=== PATIENT | male | born 1945 | race Caucasian/White ===

== ENCOUNTER → 2018-03-04 | Outpatient (CLI) | payer MEDICARE, OTHER ==
--- NOTE | 2018-03-04 15:31 | Diagnostic Imaging Report ---
INDICATION: Knee pain. Three views of the left knee were obtained. FINDINGS: The alignment is normal. There is no fracture or dislocation. There are mild degenerative changes. Soft tissues are unremarkable. IMPRESSION: Mild degenerative changes otherwise unremarkable. Dictated by: Dictated on workstation # [id number]
--- NOTE | 2018-03-04 15:35 | Diagnostic Imaging Report ---
INDICATION: Back pain. Three views were obtained. FINDINGS: There is partial lumbarization of S1 segment. The alignment of the lumbar spine is grossly normal. Vertebral body heights are well maintained. No spondylolysis or spondylolisthesis. No fractures are identified. There is mild spondylitic change. IMPRESSION: Mild lumbar spondylosis otherwise unremarkable. Dictated by: Dictated on workstation # [id number]
== END ==
LOC: RAD 14:31
PROVIDERS: ATTEND Family Medicine
DX: M17.12 Unilateral primary osteoarthritis, left knee (principal); M47.816 Spondylosis without myelopathy or radiculopathy, lumbar region
CPT/HCPCS: 72100; 73562

== ENCOUNTER → 2018-05-07 | Outpatient (CLI) | payer MEDICARE, OTHER ==
--- NOTE | 2018-05-07 11:55 | Diagnostic Imaging Report ---
PROCEDURE: MRI lumbar spine. TECHNIQUE: Multiplanar, multisequence MRI of the lumbar spine was performed without contrast. INDICATION: Left leg pain for the last seven weeks as well as left hip pain. COMPARISON: No prior MRI studies are available for comparison. FINDINGS: Curvature of the lumbar spine is normal. There is minimal anterolisthesis of L4 on L5. The vertebral body heights are well maintained. No acute compression fracture is identified. There is increased signal intensity on T1 and T2-weighted images within the L5 vertebral body. 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 A smaller hemangiolipoma is seen within the L3 vertebral body as well as the T11 vertebral body. There is generalized desiccation of the discs throughout the lumbar spine compatible with degenerative disc disease however, no significant loss of height is identified. The conus is unremarkable at approximately T12 level. T11-T12: No central canal or neuroforaminal stenosis is identified. T12-L1: Unremarkable. L1-L2: There is mild ligamentum flavum thickening and mild hypertrophic facet changes present but the AP dimensions of the central canal are normal. The neural foramina appear to be patent. L2-L3: Hypertrophic facet degenerative changes and ligamentous thickening are present. This does create some trefoil configuration of the sac. There is narrowing of the lateral recesses bilaterally. Neural foramina remain patent. L3-L4: Hypertrophic facet degenerative change and ligamentous thickening with broad-based disc/osteophyte complex is present. This does flatten the ventral thecal sac. There is trefoil configuration of the sac. Significant narrowing of bilateral lateral recesses is seen. There is also moderate right neuroforaminal stenosis. L4-L5: Significant hypertrophic facet degenerative change is seen. There is a broad-based disc/osteophyte complex and ligamentous thickening creating significant stenosis of central canal. There is also significant bilateral lateral recess stenosis. There is [id number] left and significant right neuroforaminal stenosis. L5-S1: Central canal is patent. The neural foramina are patent. The paraspinous tissues are unremarkable. IMPRESSION: Multilevel lumbar spondylosis with multilevel central canal, lateral recess and neuroforaminal stenosis described level by level above. No acute compression fracture is detected. Dictated by: Dictated on workstation # [id number]
== END ==
LOC: RAD 09:56
PROVIDERS: ATTEND Orthopaedic Surgery
DX: M48.061 Spinal stenosis, lumbar region without neurogenic claudication (principal); M47.22 Other spondylosis with radiculopathy, cervical region; M99.73 Connective tissue and disc stenosis of intervertebral foramina of lumbar region; M24.28 Disorder of ligament, vertebrae; M51.16 Intervertebral disc disorders with radiculopathy, lumbar region; M43.16 Spondylolisthesis, lumbar region; D17.79 Benign lipomatous neoplasm of other sites
CPT/HCPCS: 72148

== ENCOUNTER 2023-03-23 20:13 | Emergency (ER) | payer MEDICARE, OTHER ==
[~2023-03-23] VITALS: Ht 172.7 cm; Wt 105.2 kg
[2023-03-23] MEDS ORDERED: NS IV 1000 ML 1,000 ML IV SCH (20:30)
[2023-03-23] MEDS ORDERED: ACETAMINOPHEN 650 MG SUPPOSITORY PR ONE (20:30)
[2023-03-23 20:31] LABS: EOSINOPHILS % (AUTO) 0 % (0-10); HEMATOCRIT 38 % (40-54); LYMPHOCYTES # (AUTO) 1.3 10^3/uL (1.0-4.0); MEAN CORPUSCULAR VOLUME 87 fL (80-99)
[2023-03-23 20:33] LABS: BASOPHILS % (AUTO) 0 % (0-10); HEMOGLOBIN 13.7 g/dL (13.3-17.7); LYMPHOCYTES % (AUTO) 29 % (12-44); MEAN CORPUSCULAR HEMOGLOBIN 31 pg (25-34); MEAN CORPUSCULAR HGB CONC 36 g/dL (32-36); MEAN PLATELET VOLUME 11.4 fL (9.0-12.2); MONOCYTES # (AUTO) 0.4 10^3/uL (0.0-1.0); MONOCYTES % (AUTO) 8 % (0-12); NEUTROPHILS # (AUTO) 2.7 10^3/uL (1.8-7.8); NEUTROPHILS % (AUTO) 63 % (42-75); PLATELET COUNT 81 10^3/uL (130-400); WHITE BLOOD COUNT 4.4 10^3/uL (4.3-11.0)
[2023-03-23 20:51] LABS: ALBUMIN 3.7 GM/DL (3.2-4.5); BILIRUBIN,TOTAL 0.6 MG/DL (0.1-1.0); CALCIUM 8.1 MG/DL (8.5-10.1); CREATININE SERUM 1.48 MG/DL (0.60-1.30); MAGNESIUM 1.5 MG/DL (1.6-2.4); POTASSIUM 3.1 MMOL/L (3.6-5.0); TOTAL PROTEIN 6.1 GM/DL (6.4-8.2)
[2023-03-23 20:54] LABS: PROTHROMBIN TIME PATIENT 13.8 SEC (12.2-14.7)
[2023-03-23 21:04] LABS: SMEAR SCAN COMMENT YES
--- NOTE | 2023-03-23 21:19 | Diagnostic Imaging Report ---
PROCEDURE: CT head, face, and cervical spine without contrast. TECHNIQUE: Multiple contiguous axial images were obtained through the head, neck, and facial bones without the use of intravenous contrast. Sagittal and coronal reformations through the cervical spine and facial bones were also performed. Auto Exposure Controls were utilized during the CT exam to meet ALARA standards for radiation dose reduction. INDICATION: Altered mental status, fever, found down . COMPARISON: None. FINDINGS: Trace acute subdural hematoma along the posterior falx and right tentorium measuring approximately 0.3 cm.. The olson-white matter differentiation is preserved. Scattered hypoattenuation within the periventricular and subcortical white matter. Generalized prominence of ventricles and cortical sulci. No midline shift. The subarachnoid cisterns are maintained. Scattered vascular calcifications. Complete opacification of the right maxillary sinus with associated mucoperiosteal thickening. Remainder of the paranasal sinuses are clear. Straightening of the cervical lordosis. Moderate multilevel facet arthritis. Moderate multilevel disc height loss. No acute fracture or dislocation of the cervical spine. The soft tissues of the neck are normal. Moderate multilevel spinal canal and neuroforaminal stenosis. Included lung apices are normal. The nasal bone is intact. The pterygoid plates are intact. The mandible is intact. Multifocal periodontal disease with numerous dental cavities and periapical lucencies. The bilateral zygomatic arch and bilateral maxilla are intact. The nasal bone is intact. The orbits are intact. The globes are intact. IMPRESSION: Trace acute subdural hematoma along the posterior falx and right tentorium measuring approximately 0.3 cm. No acute facial fracture. No acute fracture or dislocation of the cervical spine. Dictated by: Dictated on workstation # [id number]
[2023-03-23 22:09] LABS: CLARITY,URINE SLIGHTLY CLOUDY; COLOR,URINE YELLOW; PH,URINE 5.5 (5-9)
[2023-03-23 22:10] LABS: AMORPHOUS SEDIMENT,UR RARE AMOR URATES /LPF; BACTERIA,URINE TRACE /HPF; BILIRUBIN,URINE NEGATIVE (NEGATIVE); GLUCOSE, URINE (UA) NEGATIVE (NEGATIVE); KETONES,URINE NEGATIVE (NEGATIVE); LEUKOCYTE ESTERASE ,URINE NEGATIVE (NEGATIVE); NITRITE,URINE NEGATIVE (NEGATIVE); PROTEIN,URINE 1+ (NEGATIVE)
--- NOTE | 2023-03-23 22:13 | ED General ---
General Chief Complaint: Exposure Nursing Triage Note: PATIENT ARRIVED VIA EMS. PERSON DRIVING BY SAW HIM ON THE GROUND AND CAME TO ASSIST. WAS IN THE HOUSE. STATES THAT SHE LEFT HIM IN HIS CHAIR AND TURNED A MOVIE ON AT 1730. SHE DID NOT HEAR ANYTHING UNTIL THE PASSERBY WAS BANGING ON THE DOOR AND PT WAS ON THE GROUND JUST OUTSIDE OF THE HOUSE DOOR. Source of Information: Patient, EMS, Family Exam Limitations: Physical Impairments History of Present Illness Date Seen by Provider: Mar 23, 2023 Time Seen by Provider: 20:20 Initial Comments This is 77-year-old gentleman presents to the emergency room via EMS after being found down on the ground outside his home. The exact history was initially u ncertain and patient did not recall exactly how he ended up on the ground. He was noted to have a temperature of 105 F on this very hot day that is over 100 F outside. It is estimated he went outside around 1730, so he may have been laying on the ground for some time. Patient reports he was unable to get up after he fell. His mentation seems sluggish, but he is alert and oriented. He has some minor pain at the superior neck and headache. He denies any other injury. His only recent acute illness has been ear infection for which she has been taking Augmentin and I believe some eardrops. He and his report that the ear infection has been both bacterial and fungal. He has not had fever before this incident. Allergies and Home Medications Allergies Coded Allergies: No Known Drug Allergies (Unverified , 03/23/23) Patient Home Medication List Home Medication List Reviewed: Yes Review of Systems Review of Systems Constitutional: see HPI EENTM: see HPI Respiratory: no symptoms reported Cardiovascular: no symptoms reported Gastrointestinal: no symptoms reported Genitourinary: no symptoms reported Musculoskeletal: see HPI Skin: no symptoms reported Psychiatric/Neurological: See HPI Hematologic/Lymphatic: No Symptoms Reported Past Cvxvhte-Xzhljz-Qhpmxw Hx Patient Social History Tobacco Use?: No Use of E-Cig and/or Vaping dev: No Substance use?: No Alcohol Use?: No Past Medical History Surgeries: No (None reported) Respiratory: No Cardiac: Yes Hypertension Neurological: Yes Neuropathy Genitourinary: No Musculoskeletal: Yes Chronic Back Pain Endocrine: Yes Diabetes, Non-Insulin dep HEENT: Yes (Ear infections) Cancer: No Psychosocial: Yes PTSD Integumentary: No Physical Exam-Suspected Sepsis Physical Exam Vital Signs Vital Signs - First Documented 03/23/23 20:13 Temp 40.4 Pulse 93 Resp 16 B/P (MAP) 133/68 (89) Pulse Ox 92 O2 Delivery Room Air Capillary Refill : Less Than 3 Seconds Blood Pressure Mean: 89 Height, Weight, BMI Height: '" Weight: lbs. oz. kg; 35.00 BMI Method: General Appearance: WD/WN, Mild Distress (Reports headache), Obese HEENT: PERRL/EOMI, TMs Normal (Left TM normal. Right TM obscured by edema of the canal. Tenderness with ear exam), Other (Slight bruising on the bridge of the nose) Neck: Normal Inspection, Other (Slight tenderness at the superior aspect of the cervical spine) Respiratory: Lungs Clear, Normal Breath Sounds, No Accessory Muscle Use, No Respiratory Distress Cardiovascular: Regular Rate, Rhythm, No Edema, No Murmur Gastrointestinal: Normal Bowel Sounds, Non Tender, Soft; No Distended Extremity: Normal Inspection, Non Tender, No Pedal Edema Neurologic/Psychiatric: Alert, Oriented x3, No Motor/Sensory Deficits, Normal Mood/Affect Skin: normal color, warm/dry, ecchymosis (Slight bruising on the bridge of his nose) Focused Exam Lactate Level 03/23/23 21:18: Lactic Acid Level 1.13 Lactic Acid Level Progress/Results/Core Measures Suspected Sepsis SIRS Temperature: Pulse: 93 Respiratory Rate: 16 Laboratory Tests 03/23/23 20:17: White Blood Count 4.4 Blood Pressure 133 /68 Mean: 89 03/23/23 21:18: Lactic Acid Level 1.13 Laboratory Tests 03/23/23 20:17: Creatinine 1.48H, INR Comment 1.0, Platelet Count 81L, Total Bilirubin 0.6 Results/Orders Lab Results Laboratory Tests Test 03/23/23 20:17 03/23/23 20:30 03/23/23 21:18 03/23/23 21:53 Range/Units White Blood Count 4.4 4.3-11.0 10^3/uL Red Blood Count 4.38 4.30-5.52 10^6/uL Hemoglobin 13.7 13.3-17.7 g/dL Hematocrit 38 L 40-54 % Mean Corpuscular Volume 87 80-99 fL Mean Corpuscular Hemoglobin 31 25-34 pg Mean Corpuscular Hemoglobin Concent 36 32-36 g/dL Red Cell Distribution Width 12.3 10.0-14.5 % Platelet Count 81 L 130-400 10^3/uL Mean Platelet Volume 11.4 9.0-12.2 fL Immature Granulocyte % (Auto) 1 % Neutrophils (%) (Auto) 63 42-75 % Lymphocytes (%) (Auto) 29 12-44 % Monocytes (%) (Auto) 8 0-12 % Eosinophils (%) (Auto) 0 0-10 % Basophils (%) (Auto) 0 0-10 % Neutrophils # (Auto) 2.7 1.8-7.8 10^3/uL Lymphocytes # (Auto) 1.3 1.0-4.0 10^3/uL Monocytes # (Auto) 0.4 0.0-1.0 10^3/uL Eosinophils # (Auto) 0.0 0.0-0.3 10^3/uL Basophils # (Auto) 0.0 0.0-0.1 10^3/uL Immature Granulocyte # (Auto) 0.0 0.0-0.1 10^3/uL Percent Immature Platelet Fraction 7.1 0.0-7.6 % Prothrombin Time 13.8 12.2-14.7 SEC INR Comment 1.0 0.8-1.4 Activated Partial Thromboplast Time 31 24-35 SEC Sodium Level 133 L 135-145 MMOL/L Potassium Level 3.1 L 3.6-5.0 MMOL/L Chloride Level 99 98-107 MMOL/L Carbon Dioxide Level 23 21-32 MMOL/L Anion Gap 11 5-14 MMOL/L Blood Urea Nitrogen 28 H 7-18 MG/DL Creatinine 1.48 H 0.60-1.30 MG/DL Estimat Glomerular Filtration Rate 48 BUN/Creatinine Ratio 19 Glucose Level 155 H 70-105 MG/DL Calcium Level 8.1 L 8.5-10.1 MG/DL Corrected Calcium 8.3 L 8.5-10.1 MG/DL Magnesium Level 1.5 L 1.6-2.4 MG/DL Total Bilirubin 0.6 0.1-1.0 MG/DL Aspartate Amino Transf (AST/SGOT) 80 H 5-34 U/L Alanine Aminotransferase (ALT/SGPT) 51 0-55 U/L Alkaline Phosphatase 106 40-136 U/L Total Creatine Kinase 145 30-200 U/L C-Reactive Protein High Sensitivity 2.96 H 0.00-0.50 MG/DL Total Protein 6.1 L 6.4-8.2 GM/DL Albumin 3.7 3.2-4.5 GM/DL Smear Scan YES Glucometer 153 H 70-110 MG/DL Influenza Type A (RT-PCR) Not Detected Not Detecte Influenza Type B (RT-PCR) Not Detected Not Detecte SARS-CoV-2 RNA (RT-PCR) Not Detected Not Detecte Lactic Acid Level 1.13 0.50-2.00 MMOL/L Urine Color YELLOW Urine Clarity SLIGHTLY CLOUDY Urine pH 5.5 5-9 Urine Specific [place] 1.020 1.016-1.022 Urine Protein 1+ H NEGATIVE Urine Glucose (UA) NEGATIVE NEGATIVE Urine Ketones NEGATIVE NEGATIVE Urine Nitrite NEGATIVE NEGATIVE Urine Bilirubin NEGATIVE NEGATIVE Urine Urobilinogen 0.2 < = 1.0 MG/DL Urine Leukocyte Esterase NEGATIVE NEGATIVE Urine RBC (Auto) 2+ H NEGATIVE Urine RBC 10-25 H /HPF Urine WBC NONE /HPF Urine Squamous Epithelial Cells 2-5 /HPF Urine Crystals PRESENT H /LPF Urine Amorphous Sediment RARE JUANA URATES H /LPF Urine Bacteria TRACE /HPF Urine Casts NONE /LPF Urine Mucus SMALL H /LPF Urine Culture Indicated NO My Orders Orders - DIRK PALENCIA MD Cbc With Automated Diff (03/23/23 20:18) Comprehensive Metabolic Panel (03/23/23 20:18) Creatine Kinase (03/23/23 20:18) Magnesium (03/23/23 20:18) Ed Iv/Invasive Line Start (03/23/23 20:18) Ns Iv 1000 Ml (Sodium Chloride 0.9%) (03/23/23 20:30) Blood Culture (03/23/23 20:27) Sputum Culture (03/23/23 20:27) Urinalysis (03/23/23 20:27) Urine Culture (03/23/23 20:27) Protime With Inr (03/23/23 20:27) Partial Thromboplastin Time (03/23/23 20:27) Chest 1 View, Ap/Pa Only (03/23/23 20:27) Vital Signs Adult Sepsis Patie Q15M (03/23/23 20:27) O2 (03/23/23 20:27) Remove Rings In Anticipation O (03/23/23 20:27) Lactic Acid Analyzer (03/23/23 20:27) Acetaminophen Suppository (Acetaminophen (03/23/23 20:30) Covid 19 Inhouse Test (03/23/23 20:27) Influenza A And B By Pcr (03/23/23 20:27) Ct Head/Face/Cervical Wo (03/23/23 20:27) Accucheck Stat ONCE (03/23/23 20:27) Hs C Reactive Protein (03/23/23 21:16) [place] Cath (03/23/23 21:16) Fentanyl Injection (Fentanyl Injection (03/23/23 22:45) Ceftriaxone Iv/Im (Ceftriaxone Iv/Im) (03/23/23 22:34) Potassium Cl 10meq/50ml Ivpb (Kcl 10 Meq (03/23/23 23:15) Medications Given in ED Current Medications Medications Dose Ordered Sig/Chichi Route Start Time Stop Time Status Last Admin Dose Admin Acetaminophen 650 mg ONCE ONCE RI 03/23/23 20:30 03/23/23 20:31 DC 03/23/23 20:49 650 MG Fentanyl Citrate 50 mcg ONCE ONCE IVP 03/23/23 22:45 03/23/23 22:46 DC 03/23/23 22:56 50 MCG Potassium Chloride 50 ml @ 50 mls/hr ONCE ONCE IV 03/23/23 23:15 03/24/23 00:06 DC 03/23/23 23:10 50 MLS/HR Vital Signs/I&O 03/23/23 03/24/23 20:49 00:05 Temp 40.3 39.3 Pulse 75 Resp 16 B/P (MAP) 109/61 Pulse Ox 95 O2 Delivery Room Air 03/23/23 23:59 Intake Total 1550 ml Balance 1550 ml Capillary Refill : Less Than 3 Seconds Blood Pressure Mean: 89 Point of Care Testing Finger Stick Blood Glucose: 153 Blood Glucose Action Taken: notified Progress Note #1: Time: 22:35 Progress Note Patient was promptly interviewed and evaluated after arrival. Labs, CT head and cervical spine, and COVID swab were obtained. No other imaging was obtained as patient had no other pain complaints. He moves all 4 extremities equally and appears to be neurologically intact. Vital signs are stable aside from fever. Patient has a significant fever and it is unknown if this is more related to infection or more related to exposure. He is receiving IV fluids, has ice packs against his body, and received rectal Tylenol. He has a rectal probe in and temperature is currently 39.5. Labs were reviewed and interpreted by me. CBC was unremarkable. CMP PE was notable for hypokalemia with potassium of 3.1. He had mild renal impairment with creatinine of 1.48 with unknown baseline. CK was normal. Blood sugar was minimally elevated. There was slight hypomagnesemia. Urinalysis demonstrated no pyuria. CRP was minimally elevated at 2.96. So far no definite source of infection has been identified. The primary concern at this time is that a small subdural hematoma was noted on the CT. Sinusitis was noted on the CT and is at this time the only known source of infection. Rocephin will be administered for initial antibiotic therapy. Progress Note #2: Time: 23:28 Progress Note I have discussed the situation with the patient and his . They initially requested transfer to the [facility] in [place]. I did check with the [facility] and they do not have neurosurgical capabilities and would not cover his transfer as they are not the nearest facility. [facility] in [place] does not have neurosurgical capability today. [facility] did accept the transfer. I discussed the case with Dr. Montez, neurosurgeon, and Dr. Cornelius, emergency room physician Diagnostic Imaging Diagonstic Imaging: Xray Plain Films/CT/US/NM/MRI: chest Comments NAME: HARRIS HARRISON [facility] REC#: [id number] PT STATUS: REG ER : 1945 PHYSICIAN: DIRK PALENCIA MD ADMIT DATE: 03/23/23/ER Signed Date of Exam:03/23/23 CHEST 1 VIEW, AP/PA ONLY CHEST 1 VIEW, AP/PA ONLY INDICATION: Fever. COMPARISON: None. FINDINGS: Lungs: Low lung volume. Airspace opacity in the right midlung. Stable pulmonary vasculature. Pleura: No pleural effusion or pneumothorax. Heart and Mediastinum: Cardiomediastinal silhouette and great vessels of the thorax are normal. Osseous Structures and Soft Tissues: No acute osseous abnormality. Normal soft tissues. IMPRESSION: Airspace opacity within the right mid lung may represent infection or atelectasis. Dictated by: Dictated on workstation # [id number] Dict: 03/23/232231 Trans: 03/23/232231 [facility] [id number] Interpreted by: KATI FRANZ DO Electronically signed by: KATI FRANZ DO 03/23/232231 Diagonstic Imaging: CT Plain Films/CT/US/NM/MRI: c-spine, head Comments NAME: AHRRIS HARRISON REC#: [id number] PT STATUS: REG ER : 1945 PHYSICIAN: DIRK PALENCIA MD ADMIT DATE: 03/23/23/ER Signed Date of Exam:03/23/23 CT HEAD/FACE/CERVICAL WO PROCEDURE: CT head, face, and cervical spine without contrast. TECHNIQUE: Multiple contiguous axial images were obtained through the head, neck, and facial bones without the use of intravenous contrast. Sagittal and coronal reformations through the cervical spine and facial bones were also performed. Auto Exposure Controls were utilized during the CT exam to meet ALARA standards for radiation dose reduction. INDICATION: Altered mental status, fever, found down . COMPARISON: None. FINDINGS: Trace acute subdural hematoma along the posterior falx and right tentorium measuring approximately 0.3 cm.. The olson-white matter differentiation is preserved. Scattered hypoattenuation within the periventricular and subcortical white matter. Generalized prominence of ventricles and cortical sulci. No midline shift. The subarachnoid cisterns are maintained. Scattered vascular calcifications. Complete opacification of the right maxillary sinus with associated mucoperiosteal thickening. Remainder of the paranasal sinuses are clear. Straightening of the cervical lordosis. Moderate multilevel facet arthritis. Moderate multilevel disc height loss. No acute fracture or dislocation of the cervical spine. The soft tissues of the neck are normal. Moderate multilevel spinal canal and neuroforaminal stenosis. Included lung apices are normal. The nasal bone is intact. The pterygoid plates are intact. The mandible is intact. Multifocal periodontal disease with numerous dental cavities and periapical lucencies. The bilateral zygomatic arch and bilateral maxilla are intact. The nasal bone is intact. The orbits are intact. The globes are intact. IMPRESSION: Trace acute subdural hematoma along the posterior falx and right tentorium measuring approximately 0.3 cm. No acute facial fracture. No acute fracture or dislocation of the cervical spine. Dictated by: Dictated on workstation # [id number] Dict: 03/23/232113 Trans: 03/23/232117 [facility] [place] [id number] Interpreted by: KATI FRANZ DO Electronically signed by: KATI FRANZ DO 03/23/232117 Departure Impression Primary Impression: Subdural hematoma Additional Impressions: Febrile illness Fall on same level Qualified Codes: W18.30XA - Fall on same level, unspecified, initial encounter Sinusitis Qualified Codes: J32.0 - Chronic maxillary sinusitis Right otitis externa Qualified Codes: H60.91 - Unspecified otitis externa, right ear Hypokalemia Renal insufficiency Disposition: [facility] Condition: Stable Transfer Transfer Reason: Exceeds level of care Time Spoke to Accepting Phy: 23:20 Transfer Progress Notes Transfer accepted by Dr. Cornelius (ER) and Dr. Montez (neurosurgery). Transfer Time: 00:05 Transfer [facility]: [facility] Method of Transfer: EMS Departure-Patient Inst. Referrals: NO,LOCAL PHYSICIAN (PCP/Family) Primary Care Physician DIRK PALENCIA MD Mar 23, 2023 22:13
--- NOTE | 2023-03-23 22:33 | Diagnostic Imaging Report ---
CHEST 1 VIEW, AP/PA ONLY INDICATION: Fever. COMPARISON: None. FINDINGS: Lungs: Low lung volume. Airspace opacity in the right midlung. Stable pulmonary vasculature. Pleura: No pleural effusion or pneumothorax. Heart and Mediastinum: Cardiomediastinal silhouette and great vessels of the thorax are normal. Osseous Structures and Soft Tissues: No acute osseous abnormality. Normal soft tissues. IMPRESSION: Airspace opacity within the right mid lung may represent infection or atelectasis. Dictated by: Dictated on workstation # [id number]
[2023-03-23] MEDS ORDERED: cefTRIAXone IV/IM 1,000 MG in NS (IVPB) 50 ML 50 ML IV STA (22:34)
[2023-03-23] MEDS ORDERED: fentaNYL INJECTION 100 MCG/2 ML VIAL IVP ONE (22:45)
[2023-03-23] MEDS ORDERED: POTASSIUM CL 10MEQ/50ML IVPB 50 ML IV ONE (23:15)
[2023-03-24 00:05] VITALS: BP 109/61
== END 2023-03-24 00:05 | disposition short-term general hospital (02) ==
LOC: EDUNIT# 20:13 → ER 20:15
DX: S06.5XAA Traumatic subdural hemorrhage with loss of consciousness status unknown, initial encounter (principal); J32.0 Chronic maxillary sinusitis; H60.91 Unspecified otitis externa, right ear; E87.6 Hypokalemia; N28.9 Disorder of kidney and ureter, unspecified; R79.82 Elevated C-reactive protein (CRP); Z20.822 Contact with and (suspected) exposure to COVID-19; W18.30XA Fall on same level, unspecified, initial encounter; Y92.009 Unspecified place in unspecified non-institutional (private) residence as the place of occurrence of the external cause
CPT/HCPCS: 36415; 51702; 70450; 70486; 71045; 72125; 80053; 81000; 82550; 82947; 83605; 83735; 85025; 85610; 85730; 86141; 87040; 87088; 87636